=== PATIENT | female | born 1985 | race African-American/Black ===

== ENCOUNTER 2018-05-27 13:06 | Emergency (ER) | payer MEDICAID, OTHER ==
[~2018-05-27] VITALS: Ht 165.1 cm; Wt 101.3 kg
[2018-05-27 13:11] VITALS: BP 142/57; PULSE 95; RESP 20; Ht 165.1 cm; Wt 101.3 kg
[2018-05-27] MEDS ORDERED: ACETAMINOPHEN 325 MG TAB PO STA (14:08)
[2018-05-27] MEDS ORDERED: CEPH-443 PO (15:51)
--- NOTE | 2018-05-27 16:26 | ERD ---
ER Documentation Chief Complaint Chief Complaint abd pain and pain on urination today- LMP one month ago per pt HPI 33-year old A1 female presents with complaints of lower abdominal pain and spotting since today. Patient does not know when her last menstrual period was but admits to with unknown gestational age. Recent denies clotting or use of multiple tampons or pads. Describes bleeding as light spotting with foul-smelling urine. Denies discharge. Denies fevers back or flank pain, or dysuria. Patient has not received care up to this point. She has no other medical conditions. ROS All systems reviewed and are negative except as per history of present illness. Medications Home Meds Active Scripts Cephalexin* (Keflex*) 500 Mg Capsule, 500 MG PO BID for 5 Days, #10 CAP Prov:FARAZ GRUBBS PA-C 05/27/18 Allergies Allergies: Coded Allergies: No Known Allergy (Verified , 05/27/18) PMhx/Soc Medical and Surgical Hx: pt denies Medical Hx, pt denies Surgical Hx Hx Alcohol Use: No Hx Substance Use: No Hx Tobacco Use: No Smoking Status: Never smoker Physical Exam Vitals Vital Signs Date Temp Pulse Resp B/P (MAP) Pulse Ox O2 O2 Flow FiO2 Time Delivery Rate 05/27/18 99.2 95 20 142/57 98 13:11 (85) Physical Exam Const: No acute distress. Pleasant affect. Head: Atraumatic Eyes: Normal Conjunctiva ENT: Normal External Ears, Nose and Mouth. Neck: Full range of motion. No meningismus. Resp: Clear to auscultation bilaterally Cardio: Regular rate and rhythm, no murmurs Abd: Soft, non tender, non distended. Normal bowel sounds. No right lower quadrant tenderness, no suprapubic, tenderness Skin: No petechiae or rashes Back: No midline or flank tenderness. No CVA tenderness. Ext: No cyanosis, or edema Neur: Awake and alert Psych: Normal Mood and Affect Result Diagram: 05/27/18 1424 05/27/18 1424 Results 24 hrs Laboratory Tests Test 05/27/18 14:24 05/27/18 14:27 White Blood Count 4.8 10^3/ul Red Blood Count 3.72 10^6/ul Hemoglobin 10.8 g/dl Hematocrit 32.8 % Mean Corpuscular Volume 88.2 fl Mean Corpuscular Hemoglobin 29.0 pg Mean Corpuscular Hemoglobin Concent 32.9 g/dl Red Cell Distribution Width 13.6 % Platelet Count 213 10^3/UL Mean Platelet Volume 8.6 fl Immature Granulocytes % 0.200 % Neutrophils % 58.6 % Lymphocytes % 30.1 % Monocytes % 6.7 % Eosinophils % 4.0 % Basophils % 0.4 % Nucleated Red Blood Cells % 0.0 /100WBC Immature Granulocytes # 0.010 10^3/ul Neutrophils # 2.8 10^3/ul Lymphocytes # 1.4 10^3/ul Monocytes # 0.3 10^3/ul Eosinophils # 0.2 10^3/ul Basophils # 0.0 10^3/ul Nucleated Red Blood Cells # 0.0 10^3/ul Prothrombin Time 13.5 Sec Prothrombin Time Ratio 1.1 INR International Normalized Ratio 1.02 Activated Partial Thromboplast Time 30.1 Sec Urine Color YELLOW Urine Clarity SLIGHTLY CLOUDY Urine pH 6.0 Urine Specific [place] 1.021 Urine Ketones NEGATIVE mg/dL Urine Nitrite NEGATIVE mg/dL Urine Bilirubin NEGATIVE mg/dL Urine Urobilinogen 1+ mg/dL Urine Leukocyte Esterase NEGATIVE Ava/ul Urine Microscopic RBC 0 /HPF Urine Microscopic WBC 11 /HPF Urine Squamous Epithelial Cells FEW /HPF Urine Bacteria FEW /HPF Urine Mucus MANY /HPF Urine Hemoglobin 1+ mg/dL Urine Glucose NEGATIVE mg/dL Urine Total Protein NEGATIVE mg/dl Sodium Level 139 mmol/L Potassium Level 3.8 mmol/L Chloride Level 104 mmol/L Carbon Dioxide Level 27 mmol/L Anion Gap 8 Blood Urea Nitrogen 7 mg/dl Creatinine 0.79 mg/dl Est Glomerular Filtrat Rate mL/min > 60 mL/min Glucose Level 82 mg/dl Calcium Level 9.8 mg/dl Total Bilirubin 0.3 mg/dl Direct Bilirubin 0.00 mg/dl Indirect Bilirubin 0.3 mg/dl Aspartate Amino Transf (AST/SGOT) 19 IU/L Alanine Aminotransferase (ALT/SGPT) 20 IU/L Alkaline Phosphatase 52 IU/L Total Protein 8.2 g/dl Albumin 4.1 g/dl Globulin 4.10 g/dl Albumin/Globulin Ratio 1.00 Beta HCG, Quantitative 89043.0 mIU/ml POC Beta HCG, Qualitative POSITIVE Current Medications Medications Dose Sig/Ann Marie Start Time Status Last (Trade) Ordered Route PRN Stop Time Admin Dose Reason Admin 650 mg ONCE STAT 05/27/18 DC 05/27/18 Acetaminophen PO 14:08 14:20 (Tylenol 05/27/18 14:12 Tab) Procedures/MDM PROCEDURE: US OB. CLINICAL INDICATION: Vaginal spotting TECHNIQUE: Transabdominal views of the pelvis are available for review. COMPARISON: No prior studies are available for comparison. FINDINGS: There is a single intrauterine gestation with the crown-rump length measuring 5.5 cm, corresponding to a gestational age of 12 weeks and 1 day. The heart rate is noted at 161 bpm. The ovaries are not visualized. There is no free fluid. The placenta is posterior. RPTAT: AA IMPRESSION: Single live intrauterine with an estimated gestational age of 12 weeks and 1 day, based on ultrasound measurements. ELIZABETH based on ultrasound measurements is 12/08/18. .Tad Talavera MD, MD Date Time Electronically viewed and signed by .Tad Talavera MD, MD on 05/27/2018 15:19 [facility] 1623: This is an otherwise healthy 33-year-old female who presented to the emergency room for evaluation of pelvic pain and spotting with . First semester OB ultrasound revealed single intrauterine gestation approximately 12 weeks and 1 day with a heart rate of 161 bpm. All labs within normal limits. Discussed case with supervising physician Dr. Boyle, who agreed based on patient clinical presentation normal labs and vitals and ultrasound patient stable for discharge with close follow-up to [employer] PROCESSING MANAGER within the next 1-2 days. Patient given handout with local STERILE PROCESSING MANAGER's in the area for patient to follow-up with as does not have a current STERILE PROCESSING MANAGER. Patient expressed concern over foul- smelling urine however UA unremarkable. Patient status and occasional false negatives on UA patient started on antibiotics for possible UA. Patient counseled regarding the return precautions. Patient happy with discharge plan and agreed to treatment plan. Questions addressed and answered. Departure Diagnosis: Primary Impression: Vaginal bleeding before 22 weeks gestation Additional Impression: Pelvic pain affecting in first trimester, antepartum Condition: Stable Patient Instructions: : Your First Trimester Changes, Vaginal Bleed in Referrals: [facility] [place] [address] [facility] [address] [place] [address] OFFICE FAX , [facility] [address] [place] [address] [address] [address] [place] [address] DR GUAJARDO, [facility] [address], [place] [address] [facility] [address] [facility] [place] [address] [facility] [address] [place] [address] [phone] [facility] [address] - [place], [place] [address] DR BURDICK, SARI [address] [facility]. [address], [place] [address] [address] [address] [place], [place] [id number] Additional Instructions: Follow-up with STERILE PROCESSING MANAGER within next 1-2 days. FARAZ GRUBBS PA-C May 27, 2018 16:26
== END 2018-05-27 16:17 | disposition home or self-care (01) ==
LOC: FTE 13:06
DX: O20.9 Hemorrhage in early pregnancy, unspecified (principal); R10.2 Pelvic and perineal pain; Z3A.12 12 weeks gestation of pregnancy
CPT/HCPCS: 36415; 76801; 80053; 81001; 81025; 84702; 85025; 85610; 85730; 86900; 86901; Z7502; Z7610